=== PATIENT | male | born 1985 | race Caucasian/White ===

== ENCOUNTER 2017-02-10 13:06 | Emergency (ER) | payer OTHER ==
[~2017-02-10] VITALS: Ht 180.3 cm; Wt 77.0 kg
[2017-02-10] MEDS ORDERED: LIDOCAINE HCL 1% 10 ML VIAL INJ ONE (14:00)
[2017-02-10] MEDS ORDERED: HYDROCODONE/ACETAMINOPHEN 5-325 MG TABLET PO ONE (14:15)
[2017-02-10 15:56] VITALS: BP 138/83
== END 2017-02-10 16:32 | disposition home or self-care (01) ==
LOC: EMS 13:10
DX: S62.615A Displaced fracture of proximal phalanx of left ring finger, initial encounter for closed fracture (principal); S63.285A Dislocation of proximal interphalangeal joint of left ring finger, initial encounter; W23.0XXA Caught, crushed, jammed, or pinched between moving objects, initial encounter; Y93.89 Activity, other specified; Y92.89 Other specified places as the place of occurrence of the external cause; Y99.8 Other external cause status
CPT/HCPCS: 26725; 73130; 73140; 99284; J3490